=== PATIENT | male | born 1950 | race Caucasian/White ===

== ENCOUNTER → 2016-09-09 | Day surgery (SDC) | payer MEDICARE, OTHER ==
--- NOTE | 2016-09-10 14:46 | Operative Note ---
DATE OF PROCEDURE: 09/09/2016. PREOPERATIVE DIAGNOSIS: HEMATURIA AND URINARY URGENCY AND FREQUENCY. POSTOPERATIVE DIAGNOSIS: HEMATURIA, URINARY URGENCY AND FREQUENCY, AND BENIGN PROSTATIC HYPERTROPHY WITH OBSTRUCTION. PROCEDURE: Cystoscopy. ANESTHESIA: Local. INDICATIONS: This is a 65-year-old male with hematuria and irritative voiding symptoms. He presents for cystoscopic evaluation today. A CT scan has already been done showing no suspicious upper urinary tract findings. PROCEDURE: Preoperative informed consent was obtained. Antibiotics were given. Sedation was administered. The patient was brought to the procedure room at [facility] and placed supine. The genitalia were prepped and draped sterilely, and flexible cystoscopy was performed. The anterior urethra appeared unremarkable without any evidence of stricture. The prostatic urethra showed trilobar obstructive enlargement. The bladder was entered and inspected systematically. The ureteral orifices had normal appearance and positioning, and there was no bladder abnormality seen. The scope was retroflexed and again, there was a small middle lobe with no significant intravesical component. The scope was then withdrawn, and the procedure was terminated. The patient tolerated this quite well. PLAN: We discussed management of his obstructive benign prostatic hypertrophy with medications and surgery such as laser vaporization. I advised him that medications are usually not effective for trilobar enlargement. He is going to consider his options. He will follow up in one year unless he wants to have the surgery scheduled, and he will contact me if that is the case. Cristhian De La Cruz M.D. Date Time Job Number: [id number] cc: Rosa M Dietz
== END | disposition home or self-care (01) ==
LOC: SC 12:57
PROVIDERS: ATTEND Urology
DX: R31.9 Hematuria, unspecified (principal); N40.1 Benign prostatic hyperplasia with lower urinary tract symptoms; R35.0 Frequency of micturition

== ENCOUNTER 2016-12-10 16:11 | Emergency (ER) | payer MEDICARE, OTHER ==
--- NOTE | 2016-12-10 16:52 | Emergency Department Record ---
History of Present Illness - General Chief complaint: Lower Extremity Pain Stated complaint: PAIN IN LT LEG, HAS LUMP,SENT BY DR Combs Seen by Provider: 12/10/16 16:48 Mode of Arrival: Ambulatory - History of Present Illness Initial comments: 2 hours ago got up from a chair and strained his knee posteriorly.No history of DVT's MD Complaint: Extremity pain Onset/Timin -: Hour(s) Location: Left, Knee History of Same: No Radiation: Distal Severity scale (1-10): 8 Quality: Sharp Consistency: Constant Improves with: Immobilization Worsens with: Exertion Associated Symptoms: Denies other symptoms - Related Data Home Medications Medication Instructions Recorded Confirmed Last Taken Amlodipine Besylate [Norvasc] 5 mg PO DAILY 12/10/16 12/10/16 12/09/16 Atorvastatin Calcium 20 mg PO QHS 12/10/16 12/10/16 12/09/16 Fluoxetine HCl [Prozac] 20 mg PO DAILY 12/10/16 12/10/16 12/09/16 Levothyroxine Sodium [Synthroid] 25 mcg PO DAILY 12/10/16 12/10/16 12/09/16 Pantoprazole Sodium [Protonix] 20 mg PO DAILY 12/10/16 12/10/16 12/09/16 Previous Rx's Medication Instructions Recorded Naproxen [Naprosyn] 500 mg PO Q12H #20 tab. 12/10/16 Allergies Allergy/AdvReac Type Severity Reaction Status Date / Time codeine AdvReac Severe VOMITING Verified 12/10/16 16:32 Travel Screening - Travel/Exposure Within Last 30 Days Have you traveled within the last 30 days?: Yes Location Detail:: [place] - Travel Symptoms Symptom Screening: None Review of Systems Reviewed: No additional complaints except as noted below Constitutional: Reports: As per HPI. Denies: Chills, Fever, Malaise, Night sweats, Weakness, Weight change Eyes: Reports: As per HPI. Denies: Eye discharge, Eye pain, Photophobia, Vision change ENT: Reports: As per HPI. Denies: Congestion, Dental pain, Ear pain, Epistaxis , Hearing loss, Throat pain Respiratory: Reports: As per HPI. Denies: Cough, Dyspnea, Hemoptysis, Stridor, Wheezes Cardiovascular: Reports: As per HPI. Denies: Arrhythmia, Chest pain, Dyspnea on exertion, Edema, Murmurs, Orthopnea, Palpitations, Paroxysmal nocturnal dyspnea, Rheumatic Fever, Syncope Endocrine: Reports: As per HPI. Denies: Fatigue, Heat or cold intolerance, Polydipsia, Polyuria Gastrointestinal: Reports: As per HPI. Denies: Abdominal pain, Constipation, Diarrhea, Hematemesis, Hematochezia, Melena, Nausea, Vomiting Genitourinary: Reports: As per HPI. Denies: Dysuria, Frequency, Hematuria, Incontinence, Retention, Testicular pain, Testicular mass, Urgency Musculoskeletal: Reports: As per HPI. Denies: Arthralgia, Back pain, Gout, Joint swelling, Myalgia, Neck pain Skin: Reports: As per HPI. Denies: Bruising, Change in color, Change in hair/ nails, Lesions, Pruritus, Rash Neurological: Reports: As per HPI. Denies: Abnormal gait, Confusion, Headache, Numbness, Paresthesias, Seizure, Tingling, Tremors, Vertigo, Weakness Psychiatric: Reports: As per HPI. Denies: Anxiety, Auditory hallucinations, Depression, Homicidal thoughts, Suicidal thoughts, Visual hallucinations Hematological/Lymphatic: Reports: As per HPI. Denies: Anemia, Blood Clots, Easy bleeding, Easy bruising, Swollen glands Past Medical History - SOCIAL HISTORY Smoking Status: Former smoker Alcohol Use: Rare Drug Use: None - RESPIRATORY Hx Respiratory Disorders: No - CARDIOVASCULAR Hx Cardio Disorders: Yes Hx Hypertension: Yes Comment:: AAA, high cholesterol - NEURO Hx Neuro Disorders: No - GI Hx GI Disorders: Yes Hx Reflux: Yes Hx Hiatal Hernia: Yes - Hx Genitourinary Disorders: No - ENDOCRINE Hx Endocrine Disorders: Yes Hx Thyroid Disease: Yes - PSYCH Hx Psych Problems: Yes Hx Depression: Yes - HEMATOLOGY/ONCOLOGY Hx Hematology/Oncology Disorders: No Family Medical History Any Significant Family History?: Yes Family Hx Comment (NOT TO BE USED IN PLACE OF ITEMS BELOW): Sister- AAA Hx Cancer: Father, Brother/Sister Physical Exam - General General Appearance: Alert, Oriented x3, Cooperative, No acute distress - Head Head exam: Normal inspection - Eye Eye exam: Normal appearance, PERRL Pupils: Normal accommodation - ENT ENT exam: Normal exam, Mucous membranes moist, Normal external ear exam, Normal orophraynx, TM's normal bilaterally Ear exam: Normal external inspection. negative: External canal tenderness Nasal Exam: Normal inspection. negative: Discharge, Sinus tenderness Mouth exam: Normal external inspection, Tongue normal Teeth exam: Normal inspection. negative: Dental caries Throat exam: Normal inspection. negative: Tonsillar erythema, Tonsillar exudate - Neck Neck exam: Normal inspection, Full ROM. negative: Tenderness - Respiratory Respiratory exam: Normal lung sounds bilaterally. negative: Respiratory distress - Cardiovascular Cardiovascular Exam: Regular rate, Normal rhythm, Normal heart sounds - GI/Abdominal GI/Abdominal exam: Soft, Normal bowel sounds. negative: Tenderness - Rectal Rectal exam: Deferred - exam: Deferred - Extremities Extremities exam: Normal inspection, Full ROM, Normal capillary refill, Tenderness (behind the knee and his hamstring tendons are sore.) - Back Back exam: Reports: Normal inspection, Full ROM. Denies: Muscle spasm, Rash noted, Tenderness - Neurological Neurological exam: Alert, Normal gait, Oriented X3, Reflexes normal - Psychiatric Psychiatric exam: Normal affect, Normal mood - Skin Skin exam: Dry, Intact, Normal color, Warm Course Vital Signs 12/10/16 16:24 Temperature 97.9 F Pulse Rate 68 Respiratory 20 Rate Blood Pressure 129/82 Pulse Ox 93 L Medical Decision Making - Data Complexity MDM Data: X-Ray Ordered and/or Reviewed (venous dopler neg for a dvt) Disposition Clinical Impression: Strain of left knee and leg Qualifiers: Encounter type: initial encounter Qualified Code(s): S86.912A - Strain of unspecified muscle(s) and tendon(s) at lower leg level, left leg, initial encounter Disposition: Home, Self-Care Condition: (1) Good Instructions: Knee Pain (ED), Musculoskeletal Pain (ED) Additional Instructions: follow up with family in 5 days Prescriptions: Naproxen [Naprosyn] 500 mg PO Q12H #20 tab.dr Forms: Patient Portal Access Time of Disposition: 18:15
== END 2016-12-10 18:23 | disposition home or self-care (01) ==
LOC: ER 16:11
DX: S86.912A Strain of unspecified muscle(s) and tendon(s) at lower leg level, left leg, initial encounter (principal); X50.0XXA Overexertion from strenuous movement or load, initial encounter; M79.605 Pain in left leg
CPT/HCPCS: 99283

== ENCOUNTER 2017-05-12 17:59 | Emergency (ER) | payer MEDICARE, OTHER ==
--- NOTE | 2017-05-12 18:31 | Emergency Department Record ---
History of Present Illness - General Chief complaint: Extremity Problem Stated complaint: ARM SWELLING Time Seen by Provider: 05/12/17 18:18 Source: Patient Mode of Arrival: EMS Limitations: No limitations - History of Present Illness Initial comments: The patient is here due to possibly having a problem with his L arm Pic line. He has a pic line placed yesterday at [facility] due to needing 6 weeks of IV Abxs for a possible R shoulder infection. He had surgery on the R shoulder 5 days ago and a spacer placed. Now today he feels like his L arm is swollen and he does have a mildly tender indurated area to the L anterior proximal forearm where a previous IV was placed. The patient is concerned he has a DVT and would like a Doppler test. MD Complaint: Extremity swelling Onset/Timin -: Days(s) Location: Left, Forearm History of Same: No Improves with: Nothing Worsens with: Nothing Associated Symptoms: Denies other symptoms - Related Data Home Medications Medication Instructions Recorded Confirmed Last Taken Cefepime in Iso-Osm Dextrose 2 gm IV Q12H 05/12/17 05/12/17 Unknown [Cefepime 2 gm Injection] Vancomycin HCl in Dextrose 5 % 1,250 mg IV Q12H 05/12/17 05/12/17 Unknown [Vancomycin 750 mg/250 ml-D5w] Allergies Allergy/AdvReac Type Severity Reaction Status Date / Time codeine AdvReac Severe VOMITING Verified 12/10/16 16:32 Travel Screening - Travel/Exposure Within Last 30 Days Have you traveled within the last 30 days?: No Review of Systems Constitutional: Denies: Chills, Fever Eyes: Denies: Eye discharge ENT: Denies: Congestion Respiratory: Denies: Cough, Dyspnea Past Medical History - SOCIAL HISTORY Smoking Status: Former smoker Alcohol Use: None Drug Use: None - RESPIRATORY Hx Respiratory Disorders: No - CARDIOVASCULAR Hx Cardio Disorders: Yes Hx Hypertension: Yes Comment:: AAA, high cholesterol - NEURO Hx Neuro Disorders: No - GI Hx GI Disorders: Yes Hx Reflux: Yes Hx Hiatal Hernia: Yes - Hx Genitourinary Disorders: No - ENDOCRINE Hx Endocrine Disorders: Yes Hx Thyroid Disease: Yes - MUSCULOSKELETAL Hx Musculoskeletal Disorders: Yes - PSYCH Hx Psych Problems: Yes Hx Depression: Yes - HEMATOLOGY/ONCOLOGY Hx Hematology/Oncology Disorders: No Family Medical History Any Significant Family History?: Yes Family Hx Comment (NOT TO BE USED IN PLACE OF ITEMS BELOW): Sister- AAA Hx Cancer: Father, Brother/Sister Physical Exam - General General Appearance: Alert, Oriented x3, Cooperative, No acute distress - Head Head exam: Atraumatic, Normocephalic, Normal inspection - Eye Eye exam: Normal appearance, PERRL - Neck Neck exam: Normal inspection, Full ROM. negative: Tenderness - Respiratory Respiratory exam: Normal lung sounds bilaterally. negative: Respiratory distress - Cardiovascular Cardiovascular Exam: Regular rate, Normal rhythm, Normal heart sounds - Extremities Extremities exam: Normal capillary refill, Tenderness (There is mild tenderness around the previous IV site with very slight induration.), Other (There is mild bruising to the mid L arm proximal to the PIC site. The L arm is NVI with normal pulses.). negative: Normal inspection, Full ROM (Post op changes R shoulder and there is a Pic Line in the L arm.), Joint swelling, Pedal edema - Neurological Neurological exam: Alert. negative: Motor sensory deficit Course Vital Signs 05/12/17 18:05 Temperature 98.5 F Pulse Rate 89 Respiratory 18 Rate Blood Pressure 159/104 Pulse Ox 96 - Reevaluation(s) Reevaluation #1: The patient is doing well. He is on his way to Radiology with the [facility]. I did discuss the case with Dr. Chaudhary who assumes care of the patient due to shift change. 05/12/17 18:49 Disposition Forms: Patient Portal Access Quality - Quality Measures Quality Measures: N/A - Blood Pressure Screening View Details: Yes Does Patient Have Any of the Following: Active Dx of HTN Blood Pressure Classification: Hypertensive Reading Systolic Measurement: 159 Diastolic Measurement: 104 Screening for High Blood Pressure: Patient Exclusion, Hx of HTN [G9744]
--- NOTE | 2017-05-12 20:33 | Emergency Department Record ---
History of Present Illness - General Chief complaint: Extremity Problem Stated complaint: ARM SWELLING Time Seen by Provider: 05/12/17 18:18 Source: Patient Mode of Arrival: EMS Limitations: No limitations - History of Present Illness Onset/Timin -: Days(s) Location: Left, Forearm History of Same: No Improves with: Nothing Worsens with: Nothing Associated Symptoms: Denies other symptoms - Related Data Home Medications Medication Instructions Recorded Confirmed Last Taken Cefepime in Iso-Osm Dextrose 2 gm IV Q12H 05/12/17 05/12/17 Unknown [Cefepime 2 gm Injection] Vancomycin HCl in Dextrose 5 % 1,250 mg IV Q12H 05/12/17 05/12/17 Unknown [Vancomycin 750 mg/250 ml-D5w] Allergies Allergy/AdvReac Type Severity Reaction Status Date / Time codeine AdvReac Severe VOMITING Verified 12/10/16 16:32 Travel Screening - Travel/Exposure Within Last 30 Days Have you traveled within the last 30 days?: No Review of Systems Constitutional: Denies: Chills, Fever Eyes: Denies: Eye discharge ENT: Denies: Congestion Respiratory: Denies: Cough, Dyspnea Past Medical History - SOCIAL HISTORY Smoking Status: Former smoker Alcohol Use: None Drug Use: None - RESPIRATORY Hx Respiratory Disorders: No - CARDIOVASCULAR Hx Cardio Disorders: Yes Hx Hypertension: Yes Comment:: AAA, high cholesterol - NEURO Hx Neuro Disorders: No - GI Hx GI Disorders: Yes Hx Reflux: Yes Hx Hiatal Hernia: Yes - Hx Genitourinary Disorders: No - ENDOCRINE Hx Endocrine Disorders: Yes Hx Thyroid Disease: Yes - MUSCULOSKELETAL Hx Musculoskeletal Disorders: Yes - PSYCH Hx Psych Problems: Yes Hx Depression: Yes - HEMATOLOGY/ONCOLOGY Hx Hematology/Oncology Disorders: No Family Medical History Any Significant Family History?: Yes Family Hx Comment (NOT TO BE USED IN PLACE OF ITEMS BELOW): Sister- AAA Hx Cancer: Father, Brother/Sister Physical Exam - General Limitations: No limitations Course Vital Signs 05/12/17 05/12/17 18:05 20:23 Temperature 98.5 F 98.3 F Pulse Rate 89 Pulse Rate [ 77 Pulse Ox Probe] Respiratory 18 16 Rate Blood Pressure 159/104 Blood Pressure 134/77 [Left Arm] Pulse Ox 96 95 - Reevaluation(s) Reevaluation #1: 05/12/17 20:30 Doppler LUE: ? Superficial thrombus at the mid-forearm, no DVT seen. Patient and family members at the bedside were updated on US results, recommended warm compresses and NSAIDs as directed for pain symptoms and to facilitate resolution of superficial thrombus. Patient verbalizes understanding of all instructions and appears stable for discharge at this time. Disposition Disposition: Discharge Clinical Impression: Superficial thrombophlebitis of arm Qualifiers: Laterality: left Qualified Code(s): I80.8 - Phlebitis and thrombophlebitis of other sites Disposition: Home, Self-Care Condition: (2) Stable Instructions: Superficial Thrombophlebitis (ED) Additional Instructions: Return to ED if your symptoms worsen or if you have any concerns. Warm compresses and Ibuprofen as directed. Follow-up with your family doctor in 3-5 days as directed. Forms: Patient Portal Access Time of Disposition: 20:33 Quality - Quality Measures Quality Measures: N/A - Blood Pressure Screening Does Patient Have Any of the Following: Active Dx of HTN Blood Pressure Classification: Hypertensive Reading Systolic Measurement: 159 Diastolic Measurement: 104 Screening for High Blood Pressure: Patient Exclusion, Hx of HTN [G9744]
--- NOTE | 2017-05-14 18:44 | US VENOUS DOPPLER REPORT ---
EXAM: ULTRASOUND VENOUS DOPPLER UPPER EXT LT HISTORY: None given. TECHNIQUE: Sonographic evaluation of the deep venous system of the left upper extremity was performed with the addition of augmentation, compression, and Doppler. FINDINGS: There is normal compression, augmentation, and blood flow identified within the left internal jugular vein, subclavian, axillary, brachial, superficial femoral, and radial veins. IMPRESSION: NO SONOGRAPHIC EVIDENCE OF DEEP VEIN THROMBOSIS IN THE LEFT UPPER EXTREMITY. THERE IS A QUESTIONABLE THROMBUS IN SUPERFICIAL VEINS. EVALUATION IS LIMITED IN THIS REGION. JOB NUMBER: [id number] [facility]
== END 2017-05-12 20:42 | disposition home or self-care (01) ==
LOC: ER 17:59
DX: T80.1XXA Vascular complications following infusion, transfusion and therapeutic injection, initial encounter (principal); I80.8 Phlebitis and thrombophlebitis of other sites; M79.632 Pain in left forearm; Y82.8 Other medical devices associated with adverse incidents; Y84.8 Other medical procedures as the cause of abnormal reaction of the patient, or of later complication, without mention of misadventure at the time of the procedure
CPT/HCPCS: 99283

== ENCOUNTER 2019-06-06 15:05 | Emergency (ER) | payer MEDICARE, OTHER ==
[2019-06-06] MEDS ORDERED: ONDANSETRON HCL IV 4 MG/2 ML VIAL IVP ONE (15:59)
[2019-06-06] MEDS ORDERED: HYDROMORPHONE HCL 2 MG/ML VIAL IVP ONE (15:59)
--- NOTE | 2019-06-06 17:06 | RADIOLOGY REPORT ---
EXAMINATION: Right Humerus, Minimum Two Views EXAM DATE: 06/06/2019 4:50 PM TECHNIQUE: AP and lateral INDICATION: injury COMPARISON: None ENCOUNTER: Initial FINDINGS: Diffuse osteopenia. Left shoulder arthroplasty. Spiral fracture distal humerus just below the fixatio n plate with mild posterior medial angulation. IMPRESSION: Spiral fracture distal humerus with posterior medial angulation Dictated by: Thomas Gray MD on 06/06/2019 5:03 PM. .
--- NOTE | 2019-06-06 17:09 | RADIOLOGY REPORT ---
EXAMINATION: Right Shoulder, Complete Minimum Two Views EXAM DATE: 06/06/2019 4:50 PM TECHNIQUE: Limited study 2 view INDICATION: injury COMPARISON: None ENCOUNTER: Initial FINDINGS: Shoulder arthroplasty. Multiple ossific densities are seen adjacent to lateral shaft proximal humeral humerus may be related to previous trauma. Donor site is not demonstrated IMPRESSION: 1. Shoulder arthroplasty 2. Multiple faint ossific densities adjacent to the lateral shaft proximal humerus may be related to previous trauma. Donor site is not identified Dictated by: Thomas Gray MD on 06/06/2019 5:04 PM. .
--- NOTE | 2019-06-06 17:34 | Emergency Department Record ---
History of Present Illness - General Chief complaint: Extremity Problem Stated complaint: LT ARM PAIN/FELL DOWN STEPS Time Seen by Provider: 06/06/19 15:30 Source: Patient Mode of Arrival: Wheelchair Limitations: No limitations - History of Present Illness Initial comments: pt missed a step and fell down into the basement injuring his r arm. he has has shoulder arthroplasty of the shoulder. he denies other injury MD Complaint: Extremity pain, Extremity swelling Onset/Timin -: Minutes(s) Location: Right, Arm History of Same: No Severity scale (1-10): 8 Quality: Aching, Sharp Consistency: Constant Improves with: Immobilization Worsens with: Exertion, Palpation, Weight bearing Associated Symptoms: Denies other symptoms - Related Data Allergies Allergy/AdvReac Type Severity Reaction Status Date / Time codeine AdvReac Severe VOMITING Unverified 05/19/19 13:04 Travel Screening - Travel/Exposure Within Last 30 Days Have you traveled within the last 30 days?: No Review of Systems Reviewed: No additional complaints except as noted below Constitutional: Reports: As per HPI. Denies: Chills, Fever, Malaise, Night sweats, Weakness, Weight change Eyes: Reports: As per HPI. Denies: Eye discharge, Eye pain, Photophobia, Vision change ENT: Reports: As per HPI. Denies: Congestion, Dental pain, Ear pain, Epistaxis, Hearing loss, Throat pain Respiratory: Reports: As per HPI. Denies: Cough, Dyspnea, Hemoptysis, Stridor, Wheezes Cardiovascular: Reports: As per HPI. Denies: Arrhythmia, Chest pain, Dyspnea on exertion, Edema, Murmurs, Orthopnea, Palpitations, Paroxysmal nocturnal dyspnea, Rheumatic Fever, Syncope Endocrine: Reports: As per HPI. Denies: Fatigue, Heat or cold intolerance, Polydipsia, Polyuria Gastrointestinal: Reports: As per HPI. Denies: Abdominal pain, Constipation, Diarrhea, Hematemesis, Hematochezia, Melena, Nausea, Vomiting Genitourinary: Reports: As per HPI. Denies: Dysuria, Frequency, Hematuria, Incontinence, Retention, Testicular pain, Testicular mass, Urgency Musculoskeletal: Reports: As per HPI. Denies: Arthralgia, Back pain, Gout, Joint swelling, Myalgia, Neck pain Skin: Reports: As per HPI. Denies: Bruising, Change in color, Change in hair/nails, Lesions, Pruritus, Rash Neurological: Reports: As per HPI. Denies: Abnormal gait, Confusion, Headache, Numbness, Paresthesias, Seizure, Tingling, Tremors, Vertigo, Weakness Psychiatric: Reports: As per HPI. Denies: Anxiety, Auditory hallucinations, Depression, Homicidal thoughts, Suicidal thoughts, Visual hallucinations Hematological/Lymphatic: Reports: As per HPI. Denies: Anemia, Blood Clots, Easy bleeding, Easy bruising, Swollen glands Past Medical History - SOCIAL HISTORY Smoking Status: Former smoker - RESPIRATORY Hx Respiratory Disorders: No - CARDIOVASCULAR Hx Cardio Disorders: Yes Hx Hypertension: Yes Comment:: AAA, high cholesterol - NEURO Hx Neuro Disorders: No - GI Hx GI Disorders: Yes Hx Reflux: Yes Hx Hiatal Hernia: Yes - Hx Genitourinary Disorders: No - ENDOCRINE Hx Endocrine Disorders: Yes Hx Thyroid Disease: Yes - MUSCULOSKELETAL Hx Musculoskeletal Disorders: Yes - PSYCH Hx Psych Problems: Yes Hx Depression: Yes - HEMATOLOGY/ONCOLOGY Hx Hematology/Oncology Disorders: No Family Medical History Any Significant Family History?: Yes Family Hx Comment (NOT TO BE USED IN PLACE OF ITEMS BELOW): Sister- AAA Hx Cancer: Father, Brother/Sister Physical Exam - General General Appearance: Alert, Oriented x3, Cooperative, Moderate distress - Head Head exam: Normal inspection - Eye Eye exam: Normal appearance, PERRL, EOMI Pupils: Normal accommodation - ENT ENT exam: Normal exam, Mucous membranes moist, Normal external ear exam, Normal orophraynx Ear exam: Normal external inspection. negative: External canal tenderness Nasal Exam: Normal inspection. negative: Discharge, Sinus tenderness Mouth exam: Normal external inspection, Tongue normal Teeth exam: Normal inspection. negative: Dental caries Throat exam: Normal inspection. negative: Tonsillar erythema, Tonsillar exudate - Neck Neck exam: Normal inspection, Full ROM. negative: Tenderness - Respiratory Respiratory exam: Normal lung sounds bilaterally. negative: Respiratory distress - Cardiovascular Cardiovascular Exam: Regular rate, Normal rhythm, Normal heart sounds - GI/Abdominal GI/Abdominal exam: Soft, Normal bowel sounds. negative: Tenderness - Rectal Rectal exam: Deferred - exam: Deferred - Extremities Extremities exam: Normal capillary refill, Tenderness. negative: Normal inspection, Full ROM Image of Full Body: 1 - tender, smv intact - Back Back exam: Reports: Normal inspection, Full ROM. Denies: Muscle spasm, Rash noted, Tenderness - Neurological Neurological exam: Alert, CN II-XII intact, Normal gait, Oriented X3 - Psychiatric Psychiatric exam: Normal affect, Normal mood - Skin Skin exam: Dry, Intact, Normal color, Warm Course Vital Signs 06/06/19 06/06/19 15:36 17:19 Temperature 98.0 F Pulse Rate [ 54 L 51 L Pulse Ox Probe] Respiratory 18 18 Rate Blood Pressure 115/73 130/96 [Left Arm] Pulse Ox 98 97 - Reevaluation(s) Reevaluation #1: 06/06/19 18:08 d/w dr leblanc and with dr love Disposition Disposition: Transfer Clinical Impression: Spiral fracture of shaft of humerus Qualifiers: Encounter type: initial encounter Fracture type: closed Fracture alignment: displaced Laterality: right Qualified Code(s): S42.341A - Displaced spiral fracture of shaft of humerus, right arm, initial encounter for closed fracture Disposition: Acute Care Hospital Transfer Transfer To: [facility] Reason For Transfer: needs orthopod Accepting Physician: chari leblanc and kate Time Discussed w/Accepting Physician: 18:10 Condition: (2) Stable Forms: Patient Portal Access Quality - Quality Measures Quality Measures: N/A - Blood Pressure Screening Does Patient Have Any of the Following: No Blood Pressure Classification: Hypertensive Reading Systolic Measurement: 130 Diastolic Measurement: 96 Screening for High Blood Pressure: < Pre-Hypertensive BP, F/U Documented > [G8950] Pre-Hypertensive Follow-up Interventions: Follow-up with rescreen every year.
== END 2019-06-06 18:49 | disposition short-term general hospital (02) ==
LOC: ER 15:05
DX: S42.341A Displaced spiral fracture of shaft of humerus, right arm, initial encounter for closed fracture (principal); W10.8XXA Fall (on) (from) other stairs and steps, initial encounter; I10 Essential (primary) hypertension; Z87.891 Personal history of nicotine dependence
CPT/HCPCS: 29105; 99285 ×2; 96374; 96375; 73060; 73030; J2405; J1170